=== PATIENT | female | born 1960 | race Asian ===

== ENCOUNTER 2019-01-29 11:00 | Emergency (ER) | payer OTHER ==
--- NOTE | 2019-01-29 11:32 | ER ---
Nurse's Notes [facility] Name: Agnieszka Miller Age: 58 yrs Sex: Female : 1960 Arrival Date: 01/29/2019 Time: 11:01 Bed Waiting Private MD: Unknown, Unknown Diagnosis: Assessment: 01/29 11:30 Reassessment: pt was accidentally registered as ER patient, intended to be seen at a general practitioner's office. ED Course: 11:01 Patient arrived in ED. ag5 11:01 Unknown, Unknown is Private Physician. ag5 Administered Medications: No medications were administered Outcome: 11:31 Eloped from waiting room, before seeing physician Time discovered patient gone: January at 11:31 11:32 Patient left the ED. Signatures: Karen Barnes, RN RN Isaac Carvajal ag5
== END 2019-01-29 11:32 | disposition left against medical advice (07) ==
LOC: ER 11:00
DX: Z02.9 Encounter for administrative examinations, unspecified (principal)